=== PATIENT | male | born 1990 | race Caucasian/White ===

== ENCOUNTER 2016-11-25 20:09 | Emergency (ER) | payer MEDICAID, OTHER ==
[2016-11-25] MEDS ORDERED: HALOPERIDOL DECANOATE INJ 100 MG/1 ML VIAL IM PRN (20:37)
--- NOTE | 2016-11-25 20:39 | ER Document Report ---
ED Medical Screen (RME) - General Chief Complaint: Psych Problem Stated Complaint: ACUTE SYMPTOMS OF PSYCHOSIS Time seen by provider: 20:37 Mode of Arrival: Ambulatory Information source: Patient TRAVEL OUTSIDE OF THE U.S. IN LAST 30 DAYS: No - HPI Patient complains to provider of: auditory hallucinations, anger outbursts Onset: Other - 2-3 days Onset/Duration: Gradual, Persistent Quality of pain: No pain Associated Symptoms: None Exacerbated by: Denies Relieved by: Denies Similar symptoms previously: Yes Recently seen / treated by doctor: No Notes: 11/25/16 20:38 Patient is a 26-year-old male with a history of schizophrenia, bipolar disorder , seizure disorder, anxiety and ADHD, he recently moved back to the area from [place], he is on several psychiatric medications including lithium, Depakote, benztropine, Zoloft and oral Haldol, as well as getting a monthly Haldol Decanoate injection, his last Haldol injection was around September 23, he is due for it now, and reports that he is having auditory hallucinations, woodworker who accompanied him reports disorganized speech, he also reports agitation over the last couple of days, he states he has an appointment with a psychiatrist next week, but does not believe he will be safe to stay home without his injection until then - Related Data Allergies/Adverse Reactions: DUST Allergy (Uncoded 05/04/16 17:22) MOLD Allergy (Uncoded 05/04/16 17:22) Past Medical History Neurological Medical History: Reports: Hx Seizures Psychiatric Medical History: Reports: Hx Anxiety, Hx Bipolar Disorder, Hx Depression, Hx Schizophrenia - Immunizations Immunizations up to date: No Hx Diphtheria, Pertussis, Tetanus Vaccination: No
[2016-11-25 21:09] LABS: ABSOLUTE EOSINOPHILS # (AUTO) 0.3 10^3/uL (0.0-0.6); ABSOLUTE MONOCYTES (AUTO) 0.4 10^3/uL (0.1-1.4); ABSOLUTE NEUT (AUTO) 3.4 10^3/uL (1.7-8.2); BASOPHILS % (AUTO) 0.4 % (0-2); EOSINOPHILS % (AUTO) 4.4 % (0-6); HEMATOCRIT 38.7 % (37.9-51.0); HEMOGLOBIN 13.6 g/dL (13.5-17.0); HGB HCT DIFFERENCE 2.1; LYMPHOCYTES % (AUTO) 42.3 % (13-45); MEAN CORPUSCULAR HEMOGLOBIN 30.3 pg (27.0-33.4); MEAN CORPUSCULAR VOLUME 87 fl (80-97); MONOCYTES % (AUTO) 4.9 % (3-13); RED BLOOD COUNT 4.47 10^6/uL (4.35-5.55); RED CELL DISTRIBUTION WIDTH 13.2 % (11.5-14.0); WHITE BLOOD COUNT 7.1 10^3/uL (4.0-10.5)
[2016-11-25 21:14] LABS: APPEARANCE,URINE CLEAR; BILIRUBIN,URINE NEGATIVE (NEGATIVE); GLUCOSE, URINE NEGATIVE (NEGATIVE); KETONES,URINE NEGATIVE (NEGATIVE); LEUKOCYTE ESTERASE,URINE NEGATIVE (NEGATIVE); NITRITE,URINE NEGATIVE (NEGATIVE); PROTEIN,URINE NEGATIVE (NEGATIVE); UROBILINOGEN,URINE NEGATIVE mg/dL (<2.0)
[2016-11-25 21:34] LABS: ALANINE AMINOTRANSFERASE 21 U/L (21-72); ALBUMIN 4.6 g/dL (3.5-5.0); ALKALINE PHOSPHATASE 37 U/L (38-126); ANION GAP 13 (5-19); ASPARTATE AMINO TRANSFERASE 15 U/L (17-59); BILIRUBIN,DIRECT 0.4 mg/dL (0.0-0.4); BILIRUBIN,TOTAL 0.5 mg/dL (0.2-1.3); BLOOD UREA NITROGEN 10 mg/dL (7-20); CALCIUM 9.6 mg/dL (8.4-10.2); CARBON DIOXIDE 29 mmol/L (22-30); CHLORIDE 104 mmol/L (98-107); GLUCOSE 96 mg/dL (75-110); LITHIUM 0.4 mEq/L (0.6-1.2); POTASSIUM 4.3 mmol/L (3.6-5.0); SODIUM 146.2 mmol/L (137-145); TOTAL PROTEIN 7.4 g/dL (6.3-8.2)
[2016-11-25 21:39] LABS: VALPROIC ACID 46.8 ug/mL (50.0-120.0)
[2016-11-25 21:40] LABS: ALCOHOL < 10 mg/dL (NONE DETECTED)
[2016-11-25 21:45] LABS: URINE BARBITURATES SCREEN NEGATIVE; URINE METHADONE SCREEN NEGATIVE; URINE OPIATES LOW NEGATIVE; URINE PHENCYCLIDINE SCREEN NEGATIVE
--- NOTE | 2016-11-25 22:05 | ER Document Report ---
ED Psych Disorder / Suicide - General Mode of Arrival: Ambulatory Information source: Patient TRAVEL OUTSIDE OF THE U.S. IN LAST 30 DAYS: No - HPI Patient complains to provider of: Agitated Onset: Other - 2-3 days ago Onset was: Gradual Suicide Risk Factors: Bipolar, Male, Schizophrenia <SUZETTE GUTIERREZ - Last Filed: 11/25/16 23:59> <RUBEN ALVARENGA - Last Filed: 11/26/16 15:24> <SMITA KRUGER - Last Filed: 11/26/16 15:30> <GUEVARA PARKER - Last Filed: 11/27/16 02:15> - General Chief Complaint: Psych Problem Stated Complaint: ACUTE SYMPTOMS OF PSYCHOSIS Notes: Patient is a 26-year-old male presenting to the emergency department after he called mobile crisis stating that he needs to get his Haldol shot. Patient states that he is becoming more agitated over the past 2-3 days. Patient states he recently moved back to [place] from [place] in October, and he got situated with [facility] with which she has an appointment next week. Patient states his last inpatient stay was in August in [place]. Patient denies any suicidal or homicidal ideation at this time, but does admit that he has a history of self-harm. Patient states that he has been diagnosed with schizoaffective disorder, bipolar disorder, depression, anxiety, seizures, ADHD , and schizophrenia. (SUZETTE GUTIERREZ) - Related Data Allergies/Adverse Reactions: DUST Allergy (Uncoded 05/04/16 17:22) MOLD Allergy (Uncoded 05/04/16 17:22) Past Medical History - General Information source: Patient - Social History Smoking Status: Unknown if Ever Smoked Drug Abuse: Marijuana Lives with: Friend Family History: None Patient has suicidal ideation: No Patient has homicidal ideation: No Neurological Medical History: Reports: Hx Seizures Psychiatric Medical History: Reports: Hx Anxiety, Hx Attention Deficit Hyperactivity Disorder, Hx Bipolar Disorder, Hx Depression, Hx Schizoaffective Disorder, Hx Schizophrenia - Immunizations Immunizations up to date: No Hx Diphtheria, Pertussis, Tetanus Vaccination: No <SUZETTE GUTIERREZ - Last Filed: 11/25/16 23:59> Review of Systems - Review of Systems Constitutional: No symptoms reported EENT: No symptoms reported Cardiovascular: No symptoms reported Respiratory: No symptoms reported Gastrointestinal: No symptoms reported Genitourinary: No symptoms reported Male Genitourinary: No symptoms reported Musculoskeletal: No symptoms reported Skin: No symptoms reported Hematologic/Lymphatic: No symptoms reported Neurological/Psychological: See HPI, Other - Agitation -: Yes All other systems reviewed and negative <JACEY GUTIERREZICA - Last Filed: 11/25/16 23:59> Physical Exam - Vital signs Interpretation: Normal - General General appearance: Appears well, Alert - HEENT Head: Normocephalic, Atraumatic Eyes: Normal Pupils: PERRL - Respiratory Respiratory status: No respiratory distress Chest status: Nontender Breath sounds: Normal Chest palpation: Normal - Cardiovascular Rhythm: Regular Heart sounds: Normal auscultation Murmur: No - Abdominal Inspection: Normal Distension: No distension Bowel sounds: Normal Tenderness: Nontender Organomegaly: No organomegaly - Back Back: Normal, Nontender - Extremities General upper extremity: Normal inspection, Nontender General lower extremity: Normal inspection, Nontender - Neurological Neuro grossly intact: Yes Cognition: Normal Orientation: AAOx4 Erick Coma Scale Eye Opening: Spontaneous [place] Coma Scale Verbal: Oriented [place] Coma Scale Motor: Obeys Commands [place] Coma Scale Total: 15 Speech: Normal - Psychological Associated symptoms: Normal mood, Flat affect - Skin Skin Temperature: Warm Skin Moisture: Dry Skin Color: Normal <BRENDASUZETTE - Last Filed: 11/25/16 23:59> Course - Laboratory Result Diagrams: 11/25/16 20:40 11/25/16 20:40 <BRENDAUSZETTE - Last Filed: 11/25/16 23:59> - Laboratory Result Diagrams: 11/25/16 20:40 11/25/16 20:40 <RUBEN ALVARENGA - Last Filed: 11/26/16 15:24> - Laboratory Result Diagrams: 11/25/16 20:40 11/25/16 20:40 <SMITA KRUGER - Last Filed: 11/26/16 15:30> - Laboratory Result Diagrams: 11/25/16 20:40 11/25/16 20:40 <GUEVARA PARKER - Last Filed: 11/27/16 02:15> - Re-evaluation Re-evalutation: 11/25/16 22:06 Patient with a history of agitation seen outfront by Dr. lindquist she can medicated with Haldol. Recently moved back from [place] is an appointment to see ALPHONSO next week is on lithium Depakote and Zoloft which she says he just recently got refills on however he is subtherapeutic on lithium and Depakote. He says is out of his benztropine and gets Haldol once a month last time was in early October. Says he's been diagnosed with schizoaffective door disorder depression and anxiety seizures and ADHD. He admits to occasionally medicating with bleed and alcohol but denies either recently. He has received the Haldol and is very calm at this point says he feels better but is here ointment to be evaluated by mobile crisis because he is afraid he would harm himself if he doesn't get treatment. He is placed under IVC for psychosis for psychiatric evaluation (GUEVARA PARKER) - Vital Signs Vital signs: Temp Pulse Resp BP Pulse Ox 97.4 F 64 16 109/63 100 11/26/16 07:03 11/26/16 07:03 11/26/16 07:03 11/26/16 07:03 11/26/16 07:03 - Laboratory Laboratory results interpreted by me: 11/25/16 11/25/16 20:40 20:40 Plt Count 143 L Sodium 146.2 H AST 15 L Alkaline Phosphatase 37 L Salicylates < 1.0 L Acetaminophen < 10 L Valproic Acid 46.8 L Wasta 0.4 L - EKG Interpretation by Me Additional EKG results interpreted by me: 11/25/16 22:33 Sinus rhythm at [address] segment elevation or depression (GUEVARA PARKER) Discharge <SUZETTE GUTIERREZ - Last Filed: 11/25/16 23:59> <RUBEN ALVARENGA - Last Filed: 11/26/16 15:24> <SMITA KRUGER - Last Filed: 11/26/16 15:30> <GUEVARA PARKER - Last Filed: 11/27/16 02:15> - Discharge Clinical Impression: Schizoaffective disorder, bipolar type Clinical Impression: (Ruled Out): Acute psychosis, Schizoaffective schizophrenia Condition: Stable Disposition: HOME, SELF-CARE Additional Instructions: Hallucinations You seem to be having hallucinations. Hallucinations are seeing, hearing, or feeling things that don't exist. These symptoms commonly occur with drug abuse and schizophrenia. Drugs like PCP, LSD, MDMA, peyote, and "psychedelic mushrooms" can cause frightening hallucinations. Users of methamphetamine or crack cocaine often see and feel bugs crawling on their skin. Patients with schizophrenia may hear voices that no one else can hear. The delusions of schizophrenia often involve conspiracies or relationships that are not real. When symptoms are due to drug abuse, the mental state usually improves as the drug wears off. Someone you trust should be with you until you are better, to protect you and calm your fears. Tranquilizer medicine is helpful at controlling hallucinations, anxiety, and deluded thoughts. Get a proper diet and enough sleep. Most patients do very well when they get proper medical treatment and social support. You should return at once if your symptoms get worse, if you are having suicidal thoughts or thoughts about hurting others, or if you feel that you are in danger. Please follow up with [facility] immediately upon discharge. AT ANY TIME, IF YOUR SYMPTOMS CHANGE SIGNIFICANTLY OR WORSEN OR YOU DEVELOP NEW SYMPTOMS, RETURN TO THE EMERGENCY DEPARTMENT IMMEDIATELY FOR RE-EVALUATION. OUR GOAL IS TO PROVIDE EXCELLENT MEDICAL CARE! WE HOPE THAT WE HAVE MET YOUR EXPECTATIONS DURING YOUR EMERGENCY DEPARTMENT VISIT AND THAT YOU FEEL YOU HAVE RECEIVED EXCELLENT CARE! Referrals: ONEL PALACIOS PA-C [Primary Care Provider] - Follow up as needed [facility]Outside] - Follow up as needed Scribe Attestation: 11/25/16 22:09 I personally performed the services described in the documentation reviewed the documentation recorded by my scribe in my presence and it accurately and completely records my words and actions (GUEVARA PARKER) Scribe Documentation - Scribe Written by Swathi:: Suzette Gutierrez 11/26/2016 0000 acting as scribe for :: Thom <SUZETTE GUTIERREZ - Last Filed: 11/25/16 23:59>
[2016-11-25] MEDS ORDERED: HALOPERIDOL 5 MG TABLET PO ONE (23:53)
[2016-11-26 07:09] VITALS: BP 109/63
--- NOTE | 2016-11-26 08:30 | EKG REPORT ---
SEVERITY:- NORMAL ECG - SINUS RHYTHM : Confirmed by: Jon Rankin MD 26-Nov-2016 08:29:14
--- NOTE | 2016-11-26 11:02 | ER Document Report ---
Doctor's Note Notes: 11/26/16 11:01 Medical rounds: Chart reviewed and patient interviewed briefly. Vital signs are satisfactory. Serum levels of lithium and valproic acid are slightly sub- therapeutic. Otherwise laboratory values are satisfactory. Patient verbalizes no complaints. He is alert, oriented, and conversant. He is medically stable awaiting evaluation by psych.
--- NOTE | 2016-11-26 15:24 | PSYCHOLOGICAL NOTE ---
Psych Note - Psych Note Psych Note: Patient is a 26-year-old male with a history of schizophrenia, bipolar disorder , seizure disorder, anxiety and ADHD, he recently moved back to the area from [place], he is on several psychiatric medications including lithium, Depakote, benztropine, Zoloft and oral Haldol, as well as getting a monthly Haldol Decanoate injection, his last Haldol injection was around September 23, he is due for it now, and reports that he is having auditory hallucinations, hydroponics worker who accompanied him reports disorganized speech, he also reports agitation over the last couple of days, he states he has an appointment with a psychiatrist next week, but does not believe he will be safe to stay home without his injection until then. Patient states that he is originally form [place] but moved to [place] in July. He disclosed that he lived on the street for a few months and then was in [facility] in [place], [place]. He continued to disclose that he was put on the Haldol Dekonate shot and was due on the first. He disclosed that he has "schizoaffective disorder, depression, anxiety, mild ADHD, I suffer from seizures, Bipolar, and schizophrenia." He states that if he does not get the shot he will go into a psychosis because he is already "showing agitation, when someone says things I hear something else and when I talk people are not hearing what I say." He continued to disclose that he has started going back to [facility] but they can not give him the medication fast enough. Patient filled a prescription on 11/24/2016 for Wagner, Zoloft, and Depakote. Patient states it was an old prescription from when he was here last time. Patient's previous prescription was in May 2016 for Wagner, abilify, Depakote, and Tramadol. Clinician notes no Haldol. Patient is alert and orientated to person, place, time and circumstance. Mood is irritable with congruent affect. Patient denies suicidal and homicidal ideation. Patient endorses auditory hallucinations; patient is not demonstrating behaviour what would be congruent to responding to internal stimuli (i.e making good eye contact, following conversation, organized thought process). No delusions are noted. Thought process is organized and linear. Eye contact was well maintained. Intellectual abilities appear to be within average range. Attention and concentration is fair. Insight, judgment, and impulse control is fair. 295.70 (F25.0) schizoaffective disorder; bipolar type. History provided by patient Impression\\plan: Patient is recommended for rescind of IVC he does not meet IVC criteria per [place] GS 120 2C. Patient is not endorsing suicidal homicidal ideation. Patient disclosed concern of possible psychosis is not getting medication however patient is not demonstrating any behavior of current psychosis. Clinician is unable to verify patient's report of Haldol Decanoate shot. Clinician notes when clinician discussed discharge with patient patient stated that if he acts out will not be his fault. Clinician explained that premeditative behavior is not congruent with psychosis. Dr. Brown was consulted on care and management of this patient; attending physician is in agreement with recommendations and disposition.
== END 2016-11-26 15:53 | disposition home or self-care (01) ==
LOC: ER 20:09
DX: F25.0 Schizoaffective disorder, bipolar type (principal); G40.909 Epilepsy, unspecified, not intractable, without status epilepticus; Z91.5 Personal history of self-harm; Z91.048 Other nonmedicinal substance allergy status; Z79.899 Other long term (current) drug therapy
CPT/HCPCS: 93005; 99285; 36415; 80307 ×4; 80178; 85025; 80053; 81001; 80164; 93010; J3490

== ENCOUNTER 2016-12-03 23:45 | Emergency (ER) | payer MEDICAID, OTHER ==
--- NOTE | 2016-12-04 01:42 | ER Document Report ---
ED Psych Disorder / Suicide - General Mode of Arrival: Medic Information source: Patient TRAVEL OUTSIDE OF THE U.S. IN LAST 30 DAYS: No - HPI Patient complains to provider of: Agitated Onset: Other - past couple days Associated symptoms: Other - see notes above - General Chief Complaint: Anxiety Stated Complaint: ANXIETY ISSUES Time Seen by Provider: 12/04/16 01:10 Notes: 26 year old male with history of schizoaffective disorder, bipolar disorder, depression, anxiety, seizures, ADHD, and schizophrenia presents to the ED complaining of increased anxiety and agitation that started a few days ago. Patient reports that his agitation is building up and earlier today he "blew up on his room mate." Patient also states that if anyone "sexually touches her ( room mate), he will rip their heart out." Patient states that he was recently here for similar complaints and claims that 'y'all did nothing." Patient reports he has tried to go to another [facility] hospital including [facility] and [facility], but states that he has to be seen at the [facility] before being seen at any other hospital. (ASUNCION FLORES) This patient is quite argumentative and confrontational, and wants to blame others for everything about his life. The patient later admitted that his behavior today caused someone to call the police on him. He also reports that he was taking medication while in [facility] that worked better than the medicine is on now, but when he ran out of that medicine he started taking the medicine he previously received here and thinks the medicine is now working in the opposite way it is supposed to. (HANH ROBLEDO) - Related Data Allergies/Adverse Reactions: DUST Allergy (Uncoded 05/04/16 17:22) MOLD Allergy (Uncoded 05/04/16 17:22) Past Medical History - General Information source: Patient - Social History Smoking Status: Unknown if Ever Smoked Chew tobacco use (# tins/day): No Frequency of alcohol use: None Drug Abuse: None Family History: None Neurological Medical History: Reports: Hx Seizures Psychiatric Medical History: Reports: Hx Anxiety, Hx Attention Deficit Hyperactivity Disorder, Hx Bipolar Disorder, Hx Depression, Hx Schizoaffective Disorder, Hx Schizophrenia - Immunizations Immunizations up to date: No Hx Diphtheria, Pertussis, Tetanus Vaccination: No Review of Systems - Review of Systems Constitutional: No symptoms reported EENT: No symptoms reported Cardiovascular: No symptoms reported Respiratory: No symptoms reported Gastrointestinal: No symptoms reported Genitourinary: No symptoms reported Male Genitourinary: No symptoms reported Musculoskeletal: No symptoms reported Skin: No symptoms reported Hematologic/Lymphatic: No symptoms reported Neurological/Psychological: No symptoms reported, Anxiety, Other - increased agitation -: Yes All other systems reviewed and negative Physical Exam - General General appearance: Alert In distress: None - HEENT Head: Normocephalic, Atraumatic Eyes: Normal Extraocular movements intact: Yes Pupils: PERRL - Respiratory Respiratory status: No respiratory distress Breath sounds: Normal - Cardiovascular Rhythm: Regular Heart sounds: Normal auscultation - Abdominal Inspection: Normal Distension: No distension Tenderness: Nontender - Back Back: Normal - Extremities General upper extremity: Normal inspection, Normal ROM General lower extremity: Normal inspection, Normal ROM - Neurological Neuro grossly intact: Yes - Psychological Associated symptoms: Agitated - Relaxed until spoken to. When questioning the validity of the patient's claims, he becomes increasingly agitated. - Skin Skin Temperature: Warm Skin Moisture: Dry Skin Color: Normal Course - Re-evaluation Re-evalutation: 12/04/16 01:52 Patient is quite argumentative and unpleasant. We will allow him to remain until the psychology staff, then in the morning to evaluate. (HANH ROBLEDO) 12/04/16 11:26 Pt seen and evaluated by mental health. Recommending Keppra 500 mg twice a day, Haldol 5 mg twice a day and Cogentin 1 mg daily for 12 days until he can see [facility]. Patient denies any suicidality. (DAMIAN ATKINSON) - Vital Signs Vital signs: Temp Pulse Resp BP Pulse Ox 98.2 F 89 18 110/72 100 12/04/16 00:32 12/04/16 00:32 12/04/16 00:32 12/04/16 00:32 12/04/16 00:32 Discharge - Discharge Clinical Impression: Anxiety Schizoaffective disorder Qualifiers: Schizoaffective disorder type: bipolar Qualified Code(s): F25.0 - Schizoaffective disorder, bipolar type Clinical Impression: (Ruled Out): Auditory hallucinations, Bipolar affective disorder Condition: Stable Disposition: HOME, SELF-CARE Additional Instructions: Anxiety The physician feels that some of your health problems are being caused by anxiety. Anxiety affects your health in many ways. Anxiety alone can cause palpitations, sweats, chest pains, abdominal pains, shortness of breath, and headaches. It contributes to ulcer disease, high blood pressure, irritable bowel syndrome, and has been shown to cause flare-ups of many other diseases. Anxiety is not a simple disorder to treat. If the anxiety is due to recent life stresses, you may simply need time to "work through" the changes. If the anxiety is due to an underlying unhappiness with yourself or due to psychiatric disturbance, professional help will be needed. Your physician can refer you for further help if needed. Anti-anxiety medication is occasionally given if the stress is acute or if you are having trouble sleeping. Chronic or frequent use of these medications is not a good idea because the body becomes reliant on it, preventing you from dealing with life's normal stresses. Patient is recommended follow-up with [facility] on December 15 at 2:20 PM for medication management appointment. AT ANY TIME, IF YOUR SYMPTOMS CHANGE SIGNIFICANTLY OR WORSEN OR YOU DEVELOP NEW SYMPTOMS, RETURN TO THE EMERGENCY DEPARTMENT IMMEDIATELY FOR RE-EVALUATION. OUR GOAL IS TO PROVIDE EXCELLENT MEDICAL CARE! WE HOPE THAT WE HAVE MET YOUR EXPECTATIONS DURING YOUR EMERGENCY DEPARTMENT VISIT AND THAT YOU FEEL YOU HAVE RECEIVED EXCELLENT CARE! Prescriptions: Benztropine Mesylate [Cogentin 1 mg Tablet] 1 tab PO DAILY #12 tab Haloperidol [Haldol 5 mg Tablet] 5 mg PO BID 12 Days Levetiracetam [Keppra 500 mg Tablet] 500 mg PO Q12 #24 tablet Referrals: ONEL PALACIOS PA-C [Primary Care Provider] - Follow up as needed [facility] [Outside] - Follow up as needed Scribe Attestation: 12/04/16 01:55 I personally performed the services described in the documentation, reviewed and edited the documentation which was dictated to the scribe in my presence, and it accurately records my words and actions. (HANH ROBLEDO) Scribe Documentation - Scribe Written by Swathi:: Swathi Jain, 12/04/2016 0147 acting as scribe for :: Renita
--- NOTE | 2016-12-04 11:15 | PSYCHOLOGICAL NOTE ---
Psych Note - Psych Note Psych Note: 26 year old male with history of schizoaffective disorder, bipolar disorder, depression, anxiety, seizures, ADHD, and schizophrenia presents to the ED complaining of increased anxiety and agitation that started a few days ago. Patient reports that his agitation is building up and earlier today he "blew up on his room mate." Patient also states that if anyone "sexually touches her ( room mate), he will rip their heart out." Patient states that he was recently here for similar complaints and claims that 'y'all did nothing." Patient reports he has tried to go to another [facility] including [facility], but states that he has to be seen at the [facility] ED before being seen at any other hospital. This patient is quite argumentative and confrontational, and wants to blame others for everything about his life. Patient disclosed he followed up with [facility] as referred last week. He continued disclosed that he has done group sessions and is now just waiting for his medication appointment. He states that he is unable to make this appointment because his symptoms are getting worse. Patient continued disclosed that his irritation is increasing and he can't control his aggression. Patient states he is in a current psychosis and manic. Clinician notes patient is not demonstrating manic behavior rather hypomanic behavior. Clinician spoke with Lisbeth of [facility] confirmed the patient has been receiving services. Patient has been cleared for a medication appointment. She disclosed that it will not be until about the second week of December. Clinician received phone call back from Lisbeth of [facility], she disclosed they're able to get an appointment for the patient on December 15 at 2:20 PM Patient is alert and orientated to person, place, time and circumstance. Mood is irritable with congruent affect. Patient denies suicidal and homicidal ideation. Patient endorses auditory hallucinations; patient is not demonstrating behaviour what would be congruent to responding to internal stimuli (i.e making good eye contact, following conversation, organized thought process). No delusions are noted. Thought process is organized and linear. Thought content surrounds the need for inpatient. Eye contact was well maintained. Intellectual abilities appear to be within average range. Attention and concentration is poor. Insight, judgment, and impulse control is poor. 295.70 (F25.0) schizoaffective disorder; bipolar type. History provided by patient Impression\\plan: Patient is considered psychiatrically cleared for discharge. He does not meet IVC criteria per [place] GS 122C. Patient is not endorsing suicidal /homicidal ideation. Patient disclosed concern of possible psychosis with increased symptoms of irritability; Clinician notes the patient is not demonstrating any behavior of current psychosis. Clinician notes when clinician discussed discharge and not going inpatient with patient, the patient stated that if he acts out will not be his fault. Clinician explained that premeditative behavior is not congruent with psychosis. Patient is unwilling to engage with clinician past demanding inpatient. Clinician notes patient does not meet criteria for inpatient. Patient is recommended for outpatient services as he is not in an acute psychosis, has not demonstrated any impulse control issues, and is not responding to internal stimuli. Patient discloses impulse control difficulties however it is noted patient warns [facility] staff of outbursts prior to acting out. His behaviors are congruent with manipulation and attempting to achieve a secondary gain, patient has full cognitive awareness and chooses his behaviors. Patient is recommended to follow up with [facility] on December 15 at 2:[address] Brown was consulted on care and management of this patient; attending physician is in agreement with recommendations and disposition.
[2016-12-04] MEDS ORDERED: BENZTROPINE MESYLATE 1 MG TABLET PO ONE (11:28)
[2016-12-04] MEDS ORDERED: LEVETIRACETAM 500 MG TABLET PO ONE (11:28)
[2016-12-04] MEDS ORDERED: HALOPERIDOL 5 MG TABLET PO ONE (11:28)
[2016-12-04 14:09] VITALS: BP 118/70
== END 2016-12-04 14:10 | disposition home or self-care (01) ==
LOC: ER 23:45
DX: F41.9 Anxiety disorder, unspecified (principal); F25.0 Schizoaffective disorder, bipolar type
CPT/HCPCS: 99284; J3490 ×3